=== PATIENT | female | born 1980 | race Caucasian/White ===

== ENCOUNTER 2023-03-16 05:56 | Day surgery (SDC) | payer OTHER ==
[~2023-03-16 05:56] MED LIST: Pre Op ABX Message 1 EACH MISC MISCELLANE ONE
[2023-03-16] MEDS ORDERED: DEXAMETHASONE SOD PHOSPHATE 4 MG/ML 1 ML VIAL IV ONE (06:17)
[2023-03-16] MEDS ORDERED: SCOPOLAMINE 1 MG/72 HR PATCH TRANSDERM ONE (06:17)
[2023-03-16] MEDS ORDERED: ONDANSETRON 4 MG/2 ML VIAL IVP ONE (06:17)
[2023-03-16] MEDS ORDERED: LACTATED RINGERS 1,000 ML IV SCH (06:17)
[2023-03-16] MEDS ORDERED: MIDAZOLAM 2 MG/2 ML VIAL IV PRN (06:17)
[2023-03-16] MEDS ORDERED: fentaNYL (PF) 50 MCG/ML 2 ML AMP IVP ONE ×2 (06:49→10:01)
[2023-03-16 07:05] VITALS: RESP 16
[2023-03-16] MEDS ORDERED: PROPOFOL 10 MG/ML 20 ML VIAL IV ONE (07:20)
[2023-03-16] MEDS ORDERED: HYDROmorphone (PF) 1 MG/ML ONE (07:20)
[2023-03-16] MEDS ORDERED: ROPIVACAINE 5 MG/ML 30 ML VIAL ONE (07:20)
[2023-03-16] MEDS ORDERED: fentaNYL (PF) 50 MCG/ML 2 ML AMP ONE (07:20)
[2023-03-16] MEDS ORDERED: SODIUM CHLORIDE 0.9% (PF) 10 ML VIAL ONE (07:20)
[2023-03-16] MEDS ORDERED: ePHEDrine 50 MG/ML 1 ML VIAL ONE (07:20)
[2023-03-16] MEDS ORDERED: LIDOCAINE 2% INJ 20 MG/ML (2 ML VIAL) ONE (07:20)
[2023-03-16] MEDS ORDERED: SODIUM CHLORIDE 0.9% 100 ML with ceFAZolin 2,000 MG IV ONE ×2 (07:25)
[2023-03-16] MEDS ORDERED: ceFAZolin 1,000 MG in SODIUM CHLORIDE 0.9% 1,000 ML IRRIGATION ONE (07:25)
--- NOTE | 2023-03-16 08:23 | P.ANPRN ---
Procedure Note - Anesthesia - Nerve Block Performed Right Popliteal Single Time Out Performed: Yes (0648) Date of Procedure: 03/16/23 Procedure Start Time: 06:49 Procedure Stop Time: 06:53 Location of Patient: PreOp Indication: Acute Post-Operative Pain, Requested by Surgeon Specifically requested for management of pain by DrWard: Perry Robertson Sedation Type: Sedate with meaningful contact maintained Preparation: Sterile Prep Position: Supine Catheter: None Needle Types: Pajunk Needle Gauge: 21 Ultrasound used to visualize needle placement: Yes Ultrasound used to observe medication spread: Yes Injectate: 0.5% Ropivacaine (see comment for volume) (15cc + 15cc nacl pf) Blood Aspirated: No Pain Paresthesia on Injection Noted: No Resistance on Injection: Normal Image Stored and Saved: Yes Events: Uneventful and Well Tolerated
--- NOTE | 2023-03-16 08:29 | P.ANPRN ---
Procedure Note - Anesthesia - Nerve Block Performed Right Adductor Canal Single Time Out Performed: Yes (0648) Date of Procedure: 03/16/23 Procedure Start Time: 06:54 Procedure Stop Time: 06:57 Location of Patient: PreOp Indication: Acute Post-Operative Pain, Requested by Surgeon Specifically requested for management of pain by DraWrd: Perry Robertson Sedation Type: Sedate with meaningful contact maintained Preparation: Sterile Prep, Sterile Dressing Position: Supine Catheter: None Needle Types: Pajunk Needle Gauge: 21 Ultrasound used to visualize needle placement: Yes Ultrasound used to observe medication spread: Yes Injectate: 0.5% Ropivacaine (see comment for volume) (15cc + 15cc nacl pf) Blood Aspirated: No Pain Paresthesia on Injection Noted: No Resistance on Injection: Normal Image Stored and Saved: Yes Events: Uneventful and Well Tolerated
[2023-03-16] MEDS: HYDROmorphone 0.5 MG/0.5 ML SYRINGE IVP PRN ×2 (09:35→09:41)
[2023-03-16] MEDS ORDERED: droPERidol 5 MG/2 ML VIAL IVP ONE (09:41)
[2023-03-16 09:43] VITALS: TEMP 98.3
--- NOTE | 2023-03-16 11:04 | P.OP ---
Date of Procedure: 03/16/23 Preoperative Diagnosis: 1. Hallux valgus right foot 2. Hammertoe second digit right foot Postoperative Diagnosis: 1. Same 2. Same Procedure(s) Performed: 1. Lapidus bunionectomy right foot 2. Hammertoe correction second digit right foot Implants: Lapiplasty plates and screws K-wire 2.3mm x 40mm cannulated screw Anesthesia: XIMENA Surgeon: Perry Robertson Estimated Blood Loss (ml): 3 Pathology: none sent Condition: stable Disposition: PACU Description of Procedure: Prior to the patient being brought to the operating room, anesthesia administered a nerve block on the right lower extremity. Patient brought into the operative room and placed on table supine position. Timeout was taken to confirm correct patient identifiers, correct laterality of surgery, and correct procedure. Once all staff in the room were in agreement with the timeout, the patient was induced and placed under general anesthesia. A well-padded tourniquet was placed on the right ankle and then the right foot was prepped and draped usual manner. The right foot was exsanguinated and the tourniquet inflated to 250 mmHg. Utilizing direct fluoroscopic visualization an incision was made lateral to the first metatarsal phalangeal joint. The blade was advanced deep in a lateral capsulotomy performed. Then the blade was rotated and advanced proximally to release the lateral sesamoid collateral ligament. The great toe was adducted under fluoroscopy to ensure that the sesamoids were freed. Then attention was directed over the dorsal aspect of the foot where an incision was made over the first tarsometatarsal joint and medial to the long extensor tendon. It was deepened down to the subcutaneous tissue careful to identify, avoid, and retract any neurovascular structures and cauterize any bleeding vessels. Dissection was then continued down to the deep tissue. An incision was made to the periosteal capsular structures medial to the long extensor tendon. The periosteum capsular structures were reflected from their osseous attachments over the first tarsometatarsal joint. Neon elevator was used to create a pocket in the soft tissue on the lateral side of the base of the first metatarsal. A guidewire was placed in the base of the first metatarsal 1 cm d istal to the joint. This is used to act as a joystick to correct the frontal plane rotation of the first metatarsal. The 3 in 1 device was inserted into the first tarsometatarsal joint. Then a small stab incision was made on the lateral side of the second metatarsal shaft just distal to the initial skin incision. The intermetatarsal angle reduction clamp was placed over the lateral side of the second metatarsal and the other aspect was placed on the medial side of the first metatarsal. Then while correcting the frontal plane rotation the inner metatarsal angle reduction clamp was then advanced to close the angle between the first and second metatarsals. Direct fluoroscopic visualization indicated when enough correction was achieved. This was indicated by closure of the first intermetatarsal angle and realignment of the sesamoids. Once the alignment was completed, a guidewire was placed through the reduction clamp to lock it in place. Pins were then placed through the cut guide to lock it in place. A sagittal saw was then used to resect the bases of the first metatarsal and articular surface of the medial cuneiform. The cut guide was then removed as well as wire and the reduction clamp. The distractor was placed over the guidewires and then the joint distracted so that the cut pieces of bone could be removed. Once that was completed the area was thoroughly irrigated with antibiotic saline. A 2.0 mm drill bit was then used to aggressively fenestrate the conjoining surfaces of the arthrodesis site. The fulcrum was then placed on the lateral side of the base of the first metatarsal. Then with the first metatarsal phalangeal joint dorsiflexed, the reduction clamp was then converted to a compression device and then the arthrodesis site was compressed. Fluoros copy confirmed that the correction was maintained and that there was good bony contact at the arthrodesis site. Threaded olive wire was then placed across the arthrodesis site to maintain the reduction. The medial plate was positioned across the arthrodesis site. Once it was in proper position, temporary fixation wires were then placed at the most proximal distal holes in the plate. The inner holes closest to the arthrodesis site were drilled and then the compression/locking screws were inserted and tightened until fully seated. The temporary fixation wires were removed and the holes drilled. Locking screws were placed in the most distal proximal holes of the medial plate. The compression device was removed along with the guidewires. The dorsal plate was then positioned and adjusted under fluoroscopy. Once position was appropriate temperate fixation was placed in the most distal proximal holes of the plate. The inner holes closest to the arthrodesis site were drilled and the locking/compression screws were placed through the plate and tightened until the heads were fully seated. The temporary fixation was removed and the most distal proximal holes were drilled and locking screws inserted until fully seated. Final fluoroscopic imaging showed proper placement of all hardware with maintain correction of the intermetatarsal angle as well as maintain compression at of th e arthrodesis site. The fulcrum and olive wire were removed. The wound is thoroughly irrigated with antibiotic saline. Deep closure done with 2-0 Vicryl. Subcu closure was done with 4-0 Monocryl. And skin closure done with3-0 Stratafix in a running subcuticular manner. The small incisions made for the clamp and the lateral release were closed with 4-0 Monocryl.Dermal glue was placed over the dorsal incision. Once dried, Steri-Strips are placed over all the incisions. Attention was directed to the second digit. A linear incision was made over the proximal interphalangeal joint. The incision was deepened down to the subcutaneous tissue careful to identify, avoid, and retract any neurovascular structures and cauterize any bleeding vessels. A transverse incision was made through the proximal interphalangeal joint capsule, resecting the extensor tendon and collateral ligaments. A sagittal saw was used to remove the head of the proximal phalanx. Esequiel was used to remove the articular surface of the base of middle phalanx. Once completed a guidewire for a 2.3 mm cannulated screw was used to create a submersible pilot hole in the proximal phalanx. Then the wire was removed and inserted at the base of the middle phalanx and advanced out the distal aspect of the digit, leaving a small portion exposed and the arthrodesis site. The small portion was realigned with the submersible pilot hole in the proximal phalanx and then the wire was advanced down to the base. Fluoroscopic imaging confirmed the proper placement wire on the AP and lateral views. A small stab incision was made at the distal tip of the toe over the wire exited and then a 2.3 mm x 40 mm cannulated screw was inserted and advanced until the head engaged the bone of the distal phalanx. Fluoroscopic imaging confirmed the proper placement of the screw both on AP and lateral views. Simulated weightbearing was done of the foot, and it was noted that the digit was dorsiflexed at the metatarsal phalangeal joint. Utilizing an incision from the Lapidus bunionectomy, a blade was advanced to the dorsal capsule of the second metatarsal phalangeal joint, where a capsulotomy and extensor tendon release was performed. This improved the dorsal contracture however did not completely resolve it. Therefore the decision was made to advance the guidewire from the 2.3 mm screw into the metatarsal phalangeal joint to maintain the correction. With the digit plantarflexed of the metatarsal phalangeal joint, the wire was advanced into the second metatarsal head. Once completed the digit was in a more anatomic or slightly plantar flexed position with maintain rectus alignment. The wound is irrigated thoroughly with antibiotic saline. Skin was closed with 3-0 nylon. The pin was bent and cut. All incisions were covered with an Arthrex jumpstart dressing and then a dry sterile dressings applied to the foot. The tourniquet was then released and capillary refill return to all digits on the left foot. The patient was then placed in a well-padded, well molded posterior mold/sugar tong splint. The ankle and foot were held in neutral position until the splint was dried. Then anesthesia was reversed and the patient was taken recovery with vital signs stable.
[2023-03-16 11:19] VITALS: BP 114/73; PULSE 61
[2023-03-16] MEDS ORDERED: LACTATED RINGERS 1,000 ML IV ONE (11:25)
== END 2023-03-16 12:21 | disposition home or self-care (01) ==
LOC: OR 05:56
PROVIDERS: ATTEND Podiatrist
DX: M20.11 Hallux valgus (acquired), right foot (principal); M20.41 Other hammer toe(s) (acquired), right foot; F41.9 Anxiety disorder, unspecified; G89.18 Other acute postprocedural pain; F32.A Depression, unspecified; F10.20 Alcohol dependence, uncomplicated; Z88.1 Allergy status to other antibiotic agents; Z79.899 Other long term (current) drug therapy
CPT/HCPCS: 28297; 64447; 64445; 81025; 28285; C1713; J2250; J1100; J2405; J0690; J3010; J1170 ×2; J2795; J2704; J1790; J2001